=== PATIENT | female | born 1980 | race American Indian/Alaskan Native ===

== ENCOUNTER 2016-04-03 07:17 | Emergency (ER) | payer SELFPAY ==
[2016-04-03 07:33] VITALS: BP 128/100
[2016-04-03 07:53] LABS: Urine Drugs of Abuse Note Disclamer
[2016-04-03 08:03] LABS: Bacteria,Urine 1+ /HPF (Negative); Basophils % (Auto) 0.3 % (0.0-1.8); Bilirubin,Urine NEG (Negative); Blood,Urine NEG (Negative); Eosinophils % (Auto) 1.1 % (0.0-4.3); Hematocrit 41.9 % (30.3-42.9); Hemoglobin 13.4 gm/dl (10.1-14.3); Ketones,Urine 20 mg/dL (Negative); Leukocyte Esterase,Urine LG (Negative); Mean Corpuscular HGB Conc 32 % (30-34); Mean Corpuscular Hemoglobin 27 pg (28-32); Mean Corpuscular Volume 86 fl (79-97); Mucus,Urine 2+ /HPF; Nitrite,Urine NEG (Negative); Platelet Count 233 K/mm3 (140-440); Red Cell Distribution Width 15.1 % (13.2-15.2); White Blood Count 10.4 K/mm3 (4.5-11.0)
[2016-04-03 08:22] LABS: Anion Gap 17 mmol/L; BUN/Creatinine Ratio 11.42; Blood Urea Nitrogen 8 mg/dL (7-17); Carbon Dioxide 25 mmol/L (22-30); Glucose 132 mg/dL (65-100); Potassium 4.7 mmol/L (3.6-5.0); Sodium 139 mmol/L (137-145)
--- NOTE | 2016-04-03 09:39 | Emergency Department Report ---
Chief Complaint: Psych Stated Complaint: SUICIDAL THOUGHTS Time Seen by Provider: 04/03/16 09:37 - HPI History of Present Illness: This is a 35-year-old female that is nontoxic in appearance. Patient here report that she was having suicidal thoughts but she says she is not having any suicidal thoughts at present. She says she is having excessive stress and she suffer from depression and she is homeless. She reported to triage notes that she had suicidal thoughts without any plan but she told me that she was having suicidal thoughts but she is not having any suicidal thoughts at present. Homicide ideation. Denies any pain. She says she's cold and she needs somewhere to stay. - ROS Review of Systems: All systems are negative unless stated in HPI above. - Exam Vital Signs: Vital Signs 04/03/16 07:30 Temperature 97.7 F Pulse Rate 76 Respiratory 18 Rate Blood Pressure 128/100 O2 Sat by Pulse 100 Oximetry Physical Exam: General: This is a 35-year-old female that is nontoxic in appearance, she looks disheveled Psych: Denies suicide ideation or homicide ideation. Calm and relax. Denies any hallucination CV: S1, S2. regular Rate and rhythm. MSE screening note: Focused history and physical exam performed. Due to findings the following was ordered:see [facility] ED Medical Decision Making - Lab Data Result diagrams: 04/03/16 07:46 04/03/16 07:46 - Medical Decision Making Medical decision making: Patient seen by provider in triage area. Appropriate protocol activated and patient to main ED to be seen by physician. ED Disposition for MSE Condition: Stable
--- NOTE | 2016-04-03 20:57 | ED Elopement Review ---
ED Pt Elopement review - Results review Lab results: Laboratory Tests 04/03/16 04/03/16 04/03/16 07:46 07:46 07:46 WBC RBC Hgb Hct MCV MCH MCHC RDW Plt Count Lymph % (Auto) [place] % (Auto) Eos % (Auto) Baso % (Auto) Lymph # [place] # Eos # Baso # Seg Neutrophils % Seg Neutrophils # Sodium 139 Potassium 4.7 D Chloride 102.0 Carbon Dioxide 25 Anion Gap 17 BUN 8 Creatinine 0.7 Estimated GFR > 60 BUN/Creatinine Ratio 11.42 Glucose 132 H Calcium 9.0 Urine Color Yellow Urine Turbidity Cloudy Urine pH 5.0 Ur Specific [place] 1.024 Urine Protein 30 mg/dl Urine Glucose (UA) Neg Urine Ketones 20 Urine Blood Neg Urine Nitrite Neg Urine Bilirubin Neg Urine Urobilinogen 2.0 Ur Leukocyte Esterase Lg Urine WBC (Auto) 31.0 H Urine RBC (Auto) 8.0 U Epithel Cells (Auto) 45.0 H Urine Bacteria (Auto) 1+ Urine Mucus 2+ Urine Opiates Screen Presumptive negative Urine Methadone Screen Presumptive negative Ur Barbiturates Screen Presumptive negative Ur Phencyclidine Scrn Presumptive negative Ur Amphetamines Screen Presumptive negative U Benzodiazepines Scrn Presumptive negative Urine Cocaine Screen Presumptive negative U Marijuana (THC) Screen Presumptive positive Drugs of Abuse Note Disclamer Plasma/Serum Alcohol 04/03/16 04/03/16 07:46 07:46 WBC 10.4 RBC 4.90 Hgb 13.4 Hct 41.9 MCV 86 MCH 27 L MCHC 32 RDW 15.1 Plt Count 233 Lymph % (Auto) 11.2 L [place] % (Auto) 6.4 Eos % (Auto) 1.1 Baso % (Auto) 0.3 Lymph # 1.2 [place] # 0.7 Eos # 0.1 Baso # 0.0 Seg Neutrophils % 81.0 H Seg Neutrophils # 8.4 H Sodium Potassium Chloride Carbon Dioxide Anion Gap BUN Creatinine Estimated GFR BUN/Creatinine Ratio Glucose Calcium Urine Color Urine Turbidity Urine pH Ur Specific [place] Urine Protein Urine Glucose (UA) Urine Ketones Urine Blood Urine Nitrite Urine Bilirubin Urine Urobilinogen Ur Leukocyte Esterase Urine WBC (Auto) Urine RBC (Auto) U Epithel Cells (Auto) Urine Bacteria (Auto) Urine Mucus Urine Opiates Screen Urine Methadone Screen Ur Barbiturates Screen Ur Phencyclidine Scrn Ur Amphetamines Screen U Benzodiazepines Scrn Urine Cocaine Screen U Marijuana (THC) Screen Drugs of Abuse Note Plasma/Serum Alcohol < 0.01 - Call Back decision Pt Call Back Decision: No action required
== END 2016-04-03 09:45 | disposition left against medical advice (07) ==
LOC: ED 07:17
DX: R45.851 Suicidal ideations (principal); F32.9 Major depressive disorder, single episode, unspecified; R45.850 Homicidal ideations; Z53.21 Procedure and treatment not carried out due to patient leaving prior to being seen by health care provider
CPT/HCPCS: 36415; 80048; 81001; 85025; G0479; G0480; 80307; 80320

== ENCOUNTER 2016-09-21 17:09 | Emergency (ER) | payer SELFPAY ==
[2016-09-21 17:22] VITALS: BP 114/85
[2016-09-21] MEDS ORDERED: MOTRIN PO ONE (17:46)
--- NOTE | 2016-09-21 18:35 | XRay Report ---
FINAL REPORT EXAM: XR FOREARM RT HISTORY: forearm tendnerss TECHNIQUE: Right forearm two views 2 images PRIORS: None. FINDINGS: Bone mineralization appears within normal limits. No acute fracture or subluxation is identified. No gross abnormality is seen in the soft tissues. IMPRESSION: 1. No acute osseous abnormality is identified.
--- NOTE | 2016-09-21 22:10 | Emergency Department Report ---
Entered by MONI BEATTY, acting as scribe for DOYLE SOLIZ NP. ED Upper Extremity Inj HPI - General Chief Complaint: Extremity Injury, Upper Stated Complaint: RT ARM PAIN Source: patient Mode of arrival: Ambulatory Limitations: No Limitations - History of Present Illness Initial Comments: This is a 35 y/o female that is non-toxic, non-ill appearing, and in no acute distress with a PMHx of HTN, anxiety, and heart murmur presents to the ED with c /o a gradual onset of intermittent right forearm pain that began 1 week ago, worsening yesterday. Patient states the intermittent episodes lasts for 30 minutes to an hour. Rates pain a 10/10 in severity, which she describes as tight in quality. Aggravated with pulling, and alleviated with inactivity. Patient denies any right arm injury/trauma, numbness, tingling, fever, joint pain, joint redness, joint swelling, chills, chest pain, SOB, nausea, and vomiting. MD Complaint: Injury to:: right, forearm Onset/Timin -: week(s) Other Extremity Injury: Forearm: Right Other Injuries: none Handedness: right Place: home Severity scale (0 -10): 10 Improves With: immobilization Worsens With: other (pulling) Context: other (no injury) Associated Symptoms: denies other symptoms. denies: weakness, numbness, neck pain, suspects foreign body, nausea/vomiting, heard/felt popping sensat - Related Data Previous Rx's Medication Instructions Recorded Last Taken Type Cyclobenzaprine [Flexeril] 10 mg PO TID PRN #30 tablet 05/09/15 Unknown Rx Ibuprofen [Motrin] 600 mg PO Q8H PRN #50 tablet 05/09/15 Unknown Rx traMADol [Ultram] 50 mg PO Q6HR PRN #20 tablet 05/09/15 Unknown Rx Ibuprofen [Motrin 600 MG tab] 600 mg PO Q8H PRN #15 tablet 09/21/16 Unknown Rx Allergies Allergy/AdvReac Type Severity Reaction Status Date / Time No Known Allergies Allergy Verified 09/21/16 17:14 ED Review of Systems Comment: All other systems reviewed and negative Constitutional: denies: chills, fever, weakness Eyes: denies: eye pain, eye discharge, vision change ENT: denies: ear pain, throat pain Respiratory: denies: cough, orthopnea, shortness of breath, SOB with exertion, SOB at rest, stridor, wheezing Cardiovascular: denies: chest pain, palpitations, dyspnea on exertion, orthopnea , edema, syncope, paroxysmal nocturnal dyspnea Endocrine: no symptoms reported Gastrointestinal: denies: nausea, vomiting Genitourinary: denies: urgency, dysuria, discharge Musculoskeletal: myalgia (right forearm pain). denies: back pain, joint swelling, arthralgia Skin: denies: rash, lesions Neurological: denies: headache, weakness, numbness, paresthesias Psychiatric: denies: anxiety, depression Hematological/Lymphatic: denies: easy bleeding, easy bruising ED Past Medical Hx - Past Medical History Hx Hypertension: Yes Hx Diabetes: Yes Hx Psychiatric Treatment: Yes (depression / anxiety) Additional medical history: HEART MURMUR - Surgical History Past Surgical History?: No - Social History Smoking Status: Current Some Day Smoker Substance Use Type: None - Medications Home Medications: Home Medications Medication Instructions Recorded Confirmed Last Taken Type Cyclobenzaprine [Flexeril] 10 mg PO TID PRN #30 tablet 05/09/15 Unknown Rx Ibuprofen [Motrin] 600 mg PO Q8H PRN #50 tablet 05/09/15 Unknown Rx traMADol [Ultram] 50 mg PO Q6HR PRN #20 tablet 05/09/15 Unknown Rx Ibuprofen [Motrin 600 MG tab] 600 mg PO Q8H PRN #15 tablet 09/21/16 Unknown Rx ED Physical Exam - General Limitations: No Limitations General appearance: alert, in no apparent distress - Head Head exam: Present: atraumatic, normocephalic - Eye Eye exam: Present: normal appearance, PERRL, EOMI Pupils: Present: normal accommodation - ENT ENT exam: Present: normal exam, normal orophraynx, mucous membranes moist, TM's normal bilaterally, normal external ear exam - Neck Neck exam: Present: normal inspection, full ROM. Absent: tenderness, meningismus, lymphadenopathy - Respiratory Respiratory exam: Present: normal lung sounds bilaterally. Absent: respiratory distress, wheezes, rales, rhonchi, stridor, chest wall tenderness, accessory muscle use, decreased breath sounds, prolonged expiratory - Cardiovascular Cardiovascular Exam: Present: regular rate, normal rhythm, normal heart sounds. Absent: bradycardia, tachycardia, irregular rhythm, systolic murmur, diastolic murmur, rubs, gallop - GI/Abdominal GI/Abdominal exam: Present: soft, normal bowel sounds. Absent: distended, tenderness, guarding, rebound, rigid, diminished bowel sounds - Rectal Rectal exam: Present: deferred - Extremities Exam Extremities exam: Present: full ROM, tenderness (right forearm), normal capillary refill. Absent: pedal edema, joint swelling, calf tenderness - Expanded Upper Extremity Exam Right General: Absent: laceration, abrasion, nail injury (#), foreign body, amputation , avulsion Shoulder Exam: Present: normal inspection, full ROM. Absent: tenderness, swelling, abrasion Upper Arm exam: Present: normal inspection, full ROM. Absent: tenderness, swelling Elbow exam: Present: normal inspection, full ROM. Absent: tenderness, swelling , abrasion, laceration Forearm Wrist exam: Present: full ROM, tenderness (right forearm tenderness present). Absent: swelling, abrasion, laceration, ecchymosis, deformity, crepidus, dislocation, erythema, tenderness over anatomical snuff box, pain with axial thumb loading Hand Wrist exam: Present: normal inspection, full ROM. Absent: tenderness, swelling, abrasion Neuro motor exam: Present: wrist extension intact, thumb opposition intact, thumb IP flexion intact, thumb adduction intact, fingers 2-5 abduction intact Neurosensory exam: Present: 2-point discrimination, radial nerve intact, ulnar nerve intact, median nerve intact Vascular: Present: normal capillary refill, radial pulse (2+), brachial pulse (2 +), ulnar pulse (2+). Absent: vascular compromise, Pallo, pulse deficit radial art, pulse deficit ulnar art, pulse deficit brachial art - Back Exam Back exam: Present: normal inspection, full ROM. Absent: tenderness, CVA tenderness (R), CVA tenderness (L), muscle spasm, paraspinal tenderness, vertebral tenderness, rash noted - Neurological Exam Neurological exam: Present: alert, oriented X3, CN II-XII intact, normal gait, reflexes normal. Absent: motor sensory deficit - Expanded Neurological Exam Expanded Motor strength exam: RUE: 5, LUE: 5, RLE: 5, LLE: 5 - Psychiatric Psychiatric exam: Present: normal affect, normal mood - Skin Skin exam: Present: warm, dry, intact. Absent: rash ED Course Vital Signs 09/21/16 17:19 Temperature 98.9 F Pulse Rate 83 Respiratory 17 Rate Blood Pressure 114/85 O2 Sat by Pulse 100 Oximetry - Reevaluation(s) Reevaluation #1: 09/21/16 18:38 Patient is sitting and watching TV with no signs of distress noted. ED Medical Decision Making - Medical Decision Making Ed course: This is a 35-year-old female that presents with left forearm pain 1- after my physcial exam , an xray of left forearm has been obtainted with normal findings. Pt was notified of xray findings with no further qustions noted by the patient. 2- pt received ibuprofen 600 mg by mouth in ED. 3- patient received ibuprofen 600 mg by mouth at the time of discharge. Patient was also instructed to follow up with her primary care doctor in 3-5 days or if symptoms worsen in unbearable return back to emergency room as soon possible. 4- at time time of discharge, the patient does not seem toxic or ill in appearance. No acute signs of distress noted. Patient agrees to discharge treatment plan of care. No further questions noted by the patient. 5- pt was instructed to RICE therapy ED Disposition Clinical Impression: Forearm pain Qualifiers: Laterality: right Qualified Code(s): M79.631 - Pain in right forearm Disposition: DC-01 TO HOME OR SELFCARE Is pt being admited?: No Does the pt Need Aspirin: No Condition: Stable Instructions: Ibuprofen (By mouth), RICE Therapy (ED) Additional Instructions: follow up with your primary care doctor in 3-5 days or if symptoms worsen in unbearable return back to emergency room as was possible. Prescriptions: Ibuprofen [Motrin 600 MG tab] 600 mg PO Q8H PRN #15 tablet PRN Reason: Pain Referrals: PRIMARY CARE, [Primary Care Provider] - 3-5 Days [facility] [Outside] - 3-5 Days [facility] [Outside] - 3-5 Days MILVIA HENDRIX JR, MD [Staff Physician] - 3-5 Days Forms: Work/School Release Form(ED) This documentation as recorded by the JACI ritter JASMINE,accurately reflects the service I personally performed and the decisions made by ,DOYLE SOLIZ, BLAIRE.
== END 2016-09-21 19:43 | disposition home or self-care (01) ==
LOC: ED 17:09
DX: M79.631 Pain in right forearm (principal); I10 Essential (primary) hypertension; E11.9 Type 2 diabetes mellitus without complications; F32.9 Major depressive disorder, single episode, unspecified; F41.9 Anxiety disorder, unspecified; F17.200 Nicotine dependence, unspecified, uncomplicated
CPT/HCPCS: 82962; 99283

== ENCOUNTER 2016-09-22 14:35 | Emergency (ER) | payer SELFPAY ==
[2016-09-22 14:44] VITALS: BP 127/88
--- NOTE | 2016-09-22 16:58 | Emergency Department Report ---
ED Lower Extremity HPI - General Chief Complaint: Extremity Injury, Lower Stated Complaint: LT TOE SWOLLEN Time Seen by Provider: 09/22/16 16:30 Source: patient Mode of arrival: Ambulatory Limitations: No Limitations - History of Present Illness Initial Comments: "blister on my toe" MD Complaint: other ("walking too much and shoe rubbing against it") Onset/Timin -: Sudden, days(s) Injury: Foot: Left Type of Injury: other (blister ) Place: street/outdoors Severity: mild Severity scale (0 -10): 2 Improves With: rest Worsens With: weight bearing, movement, palpation, other ("shoes rubbing against it") Context: walking Associated Symptoms: ambulatory. denies: swelling, numbness, tingling Treatments Prior to Arrival: other (none) - Related Data Previous Rx's Medication Instructions Recorded Last Taken Type Cyclobenzaprine [Flexeril] 10 mg PO TID PRN #30 tablet 05/09/15 Unknown Rx Ibuprofen [Motrin] 600 mg PO Q8H PRN #50 tablet 05/09/15 Unknown Rx traMADol [Ultram] 50 mg PO Q6HR PRN #20 tablet 05/09/15 Unknown Rx Ibuprofen [Motrin 600 MG tab] 600 mg PO Q8H PRN #15 tablet 09/21/16 Unknown Rx Neomycin Larson/Bacitrac Zn/Poly 14.2 gm TP BID #1 tube 09/22/16 Unknown Rx [Neosporin Antibiotic Ointment] Allergies Allergy/AdvReac Type Severity Reaction Status Date / Time No Known Allergies Allergy Verified 09/21/16 17:14 ED Review of Systems ROS: Stated complaint: LT TOE SWOLLEN Other details as noted in HPI Constitutional: denies: chills, fever Eyes: denies: eye pain, eye discharge, vision change ENT: denies: ear pain, throat pain Respiratory: denies: cough, shortness of breath, wheezing Cardiovascular: denies: chest pain, palpitations Endocrine: no symptoms reported Gastrointestinal: denies: abdominal pain, nausea, diarrhea Genitourinary: denies: urgency, dysuria, discharge Musculoskeletal: denies: back pain, joint swelling, arthralgia, myalgia Skin: other (blister plantar left great toe ) Neurological: denies: headache, weakness, paresthesias Psychiatric: denies: anxiety, depression Hematological/Lymphatic: denies: easy bleeding, easy bruising ED Past Medical Hx - Past Medical History Previous Medical History?: Yes Hx Hypertension: Yes Hx Diabetes: Yes Hx Psychiatric Treatment: Yes (depression / anxiety) Additional medical history: HEART MURMUR - Surgical History Past Surgical History?: No - Social History Smoking Status: Current Every Day Smoker Substance Use Type: Alcohol - Medications Home Medications: Home Medications Medication Instructions Recorded Confirmed Last Taken Type Cyclobenzaprine [Flexeril] 10 mg PO TID PRN #30 tablet 05/09/15 Unknown Rx Ibuprofen [Motrin] 600 mg PO Q8H PRN #50 tablet 05/09/15 Unknown Rx traMADol [Ultram] 50 mg PO Q6HR PRN #20 tablet 05/09/15 Unknown Rx Ibuprofen [Motrin 600 MG tab] 600 mg PO Q8H PRN #15 tablet 09/21/16 Unknown Rx Neomycin [place]/Bacitrac Zn/Poly 14.2 gm TP BID #1 tube 09/22/16 Unknown Rx [Neosporin Antibiotic Ointment] ED Physical Exam - General Limitations: No Limitations General appearance: alert, in no apparent distress - Head Head exam: Present: atraumatic, normocephalic - Eye Eye exam: Present: normal appearance - ENT ENT exam: Present: mucous membranes moist - Neck Neck exam: Present: normal inspection - Respiratory Respiratory exam: Present: normal lung sounds bilaterally. Absent: respiratory distress - Cardiovascular Cardiovascular Exam: Present: regular rate, normal rhythm. Absent: systolic murmur, diastolic murmur, rubs, gallop - GI/Abdominal GI/Abdominal exam: Present: soft, normal bowel sounds - Rectal Rectal exam: Present: deferred - Extremities Exam Extremities exam: Present: normal inspection - Expanded Lower Extremity Exam Left Hip exam: Present: normal inspection Upper Leg exam: Present: normal inspection Knee exam: Present: normal inspection Lower Leg exam: Present: normal inspection Ankle exam: Present: normal inspection Foot/Toe exam: Present: full ROM, tenderness, erythema. Absent: swelling, abrasion, laceration, ecchymosis, deformity, crepidus, dislocation, amputation, puncture wound, foreign body, calcaneal tenderness, tenderness at base of 5th metatarsal, nail avulsion, subungual hematoma Neuro vascular tendon exam: Present: no vascular compromise. Absent: pulse deficit, abnormal cap refill, motor deficit, sensory deficit, tendon deficit, extremity cold to touch, pallor, abnormal 2-point discrimination, decreased fine /light touch, foot drop, peroneal nerve deficit, significant pain with passive ROM of distal joint Gait: Positive: observed and normal - Back Exam Back exam: Present: normal inspection - Neurological Exam Neurological exam: Present: alert, oriented X3, CN II-XII intact, normal gait - Psychiatric Psychiatric exam: Present: normal affect, normal mood - Skin Skin exam: Present: warm, dry, other (left great toe planta blister less than 1 dcm , no drainage notes self ruptured ) ED Course Vital Signs 09/22/16 14:40 Temperature 98.9 F Pulse Rate 87 Respiratory 16 Rate Blood Pressure 127/88 O2 Sat by Pulse 97 Oximetry ED Lower Extremity MDM - Medical Decision Making pt is a 35 y/o aaf homeless who present for left plantar great toe blister less than 1 cm pt endors 2/10 pain with ambulation, wearing flip flops today gait is steady, blister appear as healing to left plantar left distal great toe no drainage mild erythema ppepb +2 no swelling no deformity no pain to touch , bacitracin and bandaid applied to same will follow with [facility] for follow up evaluation or return to emergency if symptoms worsen. Critical care attestation.: If time is entered above; I have spent that time in minutes in the direct care of this critically ill patient, excluding procedure time. ED Disposition Clinical Impression: Blister of toe of left foot Qualifiers: Encounter type: initial encounter Qualified Code(s): S90.425A - Blister ( nonthermal), left lesser toe(s), initial encounter Disposition: TO HOME OR SELFCARE Is pt being admited?: No Does the pt Need Aspirin: No Condition: Good Instructions: Diabetic Foot Care (ED) Prescriptions: Neomycin [place]arson/Bacitrac Zn/Poly [Neosporin Antibiotic Ointment] 14.2 gm TP BID #1 tube Referrals: PRIMARY CARE, [Primary Care Provider] - 3-5 Days Time of Disposition: 17:03
== END 2016-09-22 17:44 | disposition home or self-care (01) ==
LOC: ED 14:35
DX: S90.425A Blister (nonthermal), left lesser toe(s), initial encounter (principal); I10 Essential (primary) hypertension; E11.9 Type 2 diabetes mellitus without complications; F32.9 Major depressive disorder, single episode, unspecified; F41.9 Anxiety disorder, unspecified; F17.200 Nicotine dependence, unspecified, uncomplicated; X58.XXXA Exposure to other specified factors, initial encounter; Y93.89 Activity, other specified; Y99.9 Unspecified external cause status; Y92.89 Other specified places as the place of occurrence of the external cause
CPT/HCPCS: 99281

== ENCOUNTER 2016-09-30 04:32 | Emergency (ER) | payer OTHER ==
[2016-09-30 05:12] LABS: Basophils % (Auto) 0.4 % (0.0-1.8); Hematocrit 40.4 % (30.3-42.9); Mean Corpuscular HGB Conc 32 % (30-34); Mean Corpuscular Hemoglobin 27 pg (28-32); Mean Corpuscular Volume 84 fl (79-97); Platelet Count 185 K/mm3 (140-440); Red Cell Distribution Width 14.1 % (13.2-15.2); White Blood Count 5.3 K/mm3 (4.5-11.0)
[2016-09-30 05:28] LABS: Anion Gap 13 mmol/L; BUN/Creatinine Ratio 14.28; Blood Urea Nitrogen 10 mg/dL (7-17); Calcium 8.5 mg/dL (8.4-10.2); Carbon Dioxide 29 mmol/L (22-30); Chloride 101.8 mmol/L (98-107); Glucose 100 mg/dL (65-100); Potassium 3.5 mmol/L (3.6-5.0); Sodium 140 mmol/L (137-145)
[2016-09-30 05:31] LABS: Urine Drugs of Abuse Note Disclamer
[2016-09-30 05:42] LABS: Bacteria,Urine 1+ /HPF (Negative); Bilirubin,Urine NEG (Negative); Blood,Urine NEG (Negative); Ketones,Urine TR mg/dL (Negative); Leukocyte Esterase,Urine NEG (Negative); Mucus,Urine 3+ /HPF; Nitrite,Urine NEG (Negative)
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
[2016-10-01] MEDS ORDERED: XANAX PO ONE (21:41)
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
[2016-10-02] MEDS: VISTARIL PO SCH ×2 (13:18→22:05)
[2016-10-02] MEDS: ZOLOFT PO SCH (13:18)
[2016-10-03] MEDS: ZOLOFT PO SCH (10:50)
[2016-10-03] MEDS: VISTARIL PO SCH ×2 (10:50→22:28)
--- NOTE | 2016-10-03 11:40 | Progress Note ---
Subjective - Reason for Consult Consult date: 10/03/16 Reason for consult: Psychiatry Follow-up - Chief Complaint Chief complaint: "How are you" 35-year-old female homeless here with complaints of suicidality. Today patient is calm and cooperative during assessment. Patient stated that her anxiety has ceased "a littile" but still feel slightly anxious. She stated that she did a lot of thinking last night. She stated that her life issues has to get better. She rate her depression 6/10, with 10 being the worse. She could not confirm or deny that she is currently suicidal. She denies HI's, AVH's, sleep disturbance and a poor appetite. She denies any side effects of her medications. Mental Status Exam - Vital signs Last Vital Signs Temp 98.5 F 10/02/16 19:00 Pulse 68 10/02/16 19:00 Resp 16 10/02/16 19:00 BP 128/82 10/02/16 19:00 Pulse Ox 100 10/02/16 19:00 - Exam Narrative exam: MSE: Appearance: calm, cooperative, anxious Behavior: good eye contact Speech: regular rate and tone Mood: "I feel better" Affect: congruent to mood Thought Process: linear Thought Content: denies SI/HI's and AVH's Motor Activity: ambulatory Cognition: A/Ox 3 Insight: fair Judgment: fair Assessment and Plan Impression: MDD severe type, Substance Use DO (Cocaine and Marijauna), TRUNG, PTSD. Today patient is calm and cooperative during assessment. Patient is homeless. Recommendation/Plan: Continue 1013 with placement to inpatient psy services. Start Zoloft 50 mg PO daliy for depression and Vistaril 25 mg PO BID for anxiety. Discussed possible suicidality/medication induced mila with patient reference antidepressants. Discussed the importance to abstain from recreational drug use.
[2016-10-04] MEDS: VISTARIL PO SCH ×2 (10:02→23:00)
[2016-10-04] MEDS: ZOLOFT PO SCH (10:02)
--- NOTE | 2016-10-04 11:12 | Progress Note ---
Subjective - Reason for Consult Consult date: 10/04/16 Reason for consult: Psychiatry Follow-up - Chief Complaint Chief complaint: "How are you" 35-year-old female homeless here with complaints of suicidality. Today patient is calm and cooperative during assessment. Patient stated that she feel much better and deny SI's. She stated that she look forward to being discharged soon. She denies HI's, AVH's, and depression symptoms. She stated that she have much to live for. Mental Status Exam - Vital signs Last Vital Signs Temp 99.2 F 10/03/16 23:00 Pulse 50 L 10/04/16 07:49 Resp 15 10/04/16 07:49 BP 142/97 10/04/16 07:49 Pulse Ox 100 10/04/16 07:49 - Exam Narrative exam: MSE: Appearance: calm, cooperative, anxious Behavior: good eye contact Speech: regular rate and tone Mood: "I feel better" Affect: congruent to mood Thought Process: linear Thought Content: denies SI/HI's and AVH's Motor Activity: ambulatory Cognition: A/Ox 3 Insight: fair Judgment: fair Assessment and Plan Impression: MDD severe type, Substance Use DO (Cocaine and Marijauna), TRUNG, PTSD. Today patient is calm and cooperative during assessment. Patient is homeless. She denies SI/HI's. Recommendation/Plan: Evaluate 1013 in 24 hours to determine proper dispo. Start Zoloft 50 mg PO daliy for depression and Vistaril 25 mg PO BID for anxiety. Discussed possible suicidality/meication induced mila with patient reference antidepressants.
[2016-10-05] MEDS: ZOLOFT PO SCH (10:21)
[2016-10-05] MEDS: VISTARIL PO SCH ×2 (10:21→22:18)
--- NOTE | 2016-10-05 17:59 | Progress Note ---
Subjective - Reason for Consult Consult date: 10/05/16 Reason for consult: follow up - Chief Complaint Chief complaint: "I feel better" 35-year-old female homeless presented to the ER with complaints of suicidality. Today patient is calm and cooperative during assessment. Patient stated that she feel much better and deny SI's. She stated that she look forward to being discharged soon. She denies HI's, AVH's, and depression symptoms. She complains of being tired today. Mental Status Exam - Vital signs Last Vital Signs Temp 98.3 F 10/05/16 09:10 Pulse 63 10/05/16 09:10 Resp 18 10/05/16 09:10 BP 131/85 10/05/16 09:10 Pulse Ox 100 10/05/16 09:10 Assessment and Plan MSE: Appearance: calm, cooperative, anxious Behavior: good eye contact Speech: regular rate and tone Mood: "I feel better" Affect: congruent to mood Thought Process: linear Thought Content: denies SI/HI's and AVH's Motor Activity: ambulatory Cognition: A/Ox 3 Insight: fair Judgment: fair Assessment and Plan Impression: MDD severe type, Substance Use DO (Cocaine and Marijauna), TRUNG, PTSD. Today patient is calm and cooperative during assessment. Patient is homeless. She denies SI/HI's. Recommendation/Plan: Evaluate 1013 and consider rescinding in 24 hours. Plan for outpatient mental health referrals if condition is unchanged tomorrow. Continue Zoloft 50 mg PO daliy for depression and Vistaril 25 mg PO BID for anxiety. Discussed possible suicidality/medication induced mila with patient reference antidepressants.
[2016-10-06 08:37] VITALS: BP 128/83
[2016-10-06] MEDS: VISTARIL PO SCH (09:50)
[2016-10-06] MEDS: ZOLOFT PO SCH (09:50)
--- NOTE | 2016-10-06 13:00 | Progress Note ---
Subjective - Reason for Consult Consult date: 10/06/16 Reason for consult: Psychiatry Follow-up - Chief Complaint Chief complaint: "I am feeling better" 35-year-old female homeless presented to the ER with complaints of suicidality. Today patient is calm and cooperative during assessment. Patient stated that her head is "clear" and look forward to being discharged. She is willing to attend rehab services for recreational drug use. She denies SI/HI's, AVH's, and depression. Mental Status Exam - Vital signs Last Vital Signs Temp 98.4 F 10/06/16 08:37 Pulse 52 L 10/06/16 08:37 Resp 16 10/06/16 08:37 BP 128/83 10/06/16 08:37 Pulse Ox 99 10/06/16 08:37 - Exam Narrative exam: MSE: Appearance: calm, cooperative, anxious Behavior: good eye contact Speech: regular rate and tone Mood: "well" Affect: congruent to mood Thought Process: linear Thought Content: denies SI/HI's and AVH's Motor Activity: ambulatory Cognition: A/Ox 3 Insight: fair Judgment: fair Assessment and Plan Impression: MDD severe type, Substance Use DO (Cocaine and Marijauna), TRUNG, PTSD. Today patient is calm and cooperative during assessment. Patient is homeless. She denies SI/HI's. Recommendation/Plan: Rescind 1013. Continue Zoloft 50 mg PO daliy for depression. Discussed possible suicidality/meication induced mila with patient reference antidepressants. [employer] involved patient is homeless. Patient can follow-up with the [facility] for outpatient psy services.
== END 2016-10-06 18:08 | disposition home or self-care (01) ==
LOC: EEVIPCON 04:32 → ED 04:32
DX: R45.851 Suicidal ideations (principal); F19.10 Other psychoactive substance abuse, uncomplicated; I10 Essential (primary) hypertension; E11.9 Type 2 diabetes mellitus without complications; F32.9 Major depressive disorder, single episode, unspecified; F41.9 Anxiety disorder, unspecified; F17.200 Nicotine dependence, unspecified, uncomplicated
CPT/HCPCS: 36415; 80048; 80307; 81001; 84703; 85025; 99284; G0480; 80320; Q0177

== ENCOUNTER 2016-10-13 00:34 | Emergency (ER) | payer SELFPAY ==
[2016-10-13 00:42] VITALS: BP 112/76
--- NOTE | 2016-10-13 05:29 | Emergency Department Report ---
Chief Complaint: Urogenital-Female Stated Complaint: STD EXPOSURE Time Seen by Provider: 10/13/16 05:28 - Exam Vital Signs: Vital Signs 10/13/16 00:38 Temperature 97.7 F Pulse Rate 66 Respiratory 20 Rate Blood Pressure 112/76 O2 Sat by Pulse 99 Oximetry MSE screening note: Focused history and physical exam performed. Due to findings the following was ordered: ED Disposition for MSE Condition: Stable Referrals: PRIMARY CARE, [Primary Care Provider] - 3-5 Days
== END 2016-10-13 05:41 | disposition left against medical advice (07) ==
LOC: ED 00:34
DX: Z53.21 Procedure and treatment not carried out due to patient leaving prior to being seen by health care provider (principal)